=== PATIENT | female | born 1950 | race Caucasian/White ===

== ENCOUNTER 2020-09-15 18:57 | Inpatient (IN) | payer MEDICARE, BC ==
[~2020-09-15] VITALS: Ht 170.2 cm; Wt 68.0 kg
[2020-09-15] MEDS ORDERED: MORPHINE SULFATE 4 MG/1 ML DISP.SYRIN IV ONE (19:30)
[2020-09-15 19:39] LABS: MEAN CORPUSCULAR HEMOGLOBIN 32.1 uug (24.7-32.8); MEAN CORPUSCULAR VOLUME 97.4 fL (75.5-95.3); PLATELET COUNT (AUTO) 272 K/uL (179-408)
[2020-09-15 19:42] LABS: CREATININE 1.2 mg/dL (0.6-1.3); POTASSIUM 3.9 mmol/L (3.5-5.1)
[2020-09-15 19:48] LABS: BILIRUBIN,DIRECT 0.1 mg/dL (0.0-0.2); BILIRUBIN,TOTAL 0.3 mg/dL (0.2-1.0); TOTAL PROTEIN, SERUM 6.7 g/dL (6.4-8.2)
[2020-09-15] MEDS ORDERED: MORPHINE SULFATE 4 MG/1 ML DISP.SYRIN ONE (20:15)
[2020-09-15] MEDS ORDERED: ONDANSETRON HCL 4 MG TABLET ONE (21:05)
[2020-09-15] MEDS ORDERED: ONDANSETRON ODT 4 MG TAB.RAPDIS ONE (21:06)
[2020-09-15] MEDS ORDERED: ONDANSETRON ODT 4 MG TAB.RAPDIS SL ONE (21:30)
[2020-09-15] MEDS ORDERED: MORPHINE SULFATE 2 MG/1 ML DISP.SYRIN IV PRN (22:00)
[2020-09-15] MEDS ORDERED: ACETAMINOPHEN 325 MG TABLET PO PRN (22:00)
[2020-09-15] MEDS ORDERED: MAGNESIUM HYDROXIDE 30 ML LIQUID UDC PO PRN (22:00)
[2020-09-15] MEDS ORDERED: TDAP DIPH,PERTUSS,TET VAC/PF 0.5 ML DISP.SYRIN IM ONE (22:00)
[2020-09-15] MEDS ORDERED: Z GUARD REMEDY PASTE 57 GM TUBE TOP PRN (22:00)
[2020-09-15] MEDS ORDERED: BACITRACIN ZINC OINT 15 GM TUBE ONE (22:14)
[2020-09-15] MEDS ORDERED: NEOMY/BACITRA/POLYMYXIN B OINT UD PACKET TP ONE (22:15)
[2020-09-15] MEDS: HYDROCODONE/APAP 5-325MG TABLET PO PRN (23:10)
[2020-09-16] MEDS ORDERED: HYDROCODONE/APAP 5-325MG TABLET ONE ×2 (03:36→08:53)
[2020-09-16 06:12] LABS: HEMATOCRIT 39.8 % (31.2-41.9); MEAN CORPUSCULAR HEMOGLOBIN 33.1 uug (24.7-32.8); MEAN CORPUSCULAR VOLUME 97.1 fL (75.5-95.3); PLATELET COUNT (AUTO) 264 K/uL (179-408)
--- NOTE | 2020-09-16 06:26 | NUR ---
pt refused folley cath at this point.
[2020-09-16] MEDS ORDERED: RIVA20TA PO (06:34)
[2020-09-16] MEDS ORDERED: LISI10TA29 PO (06:34)
[2020-09-16] MEDS ORDERED: MONT10TA22 PO (06:34)
[2020-09-16] MEDS ORDERED: AZEL137S7 BNOSTRILS (06:34)
[2020-09-16] MEDS ORDERED: [UNRECOGNIZED DRUG - OTHER] (06:34)
[2020-09-16] MEDS ORDERED: brio NS (06:34)
[2020-09-16 06:37] LABS: *BILIRUBIN,URIN NEGATIVE (NEGATIVE); *BLOOD, URINE NEGATIVE (NEGATIVE); *CLARITY,URINE CLEAR (CLEAR); *COLOR,URINE YELLOW (YELLOW); *KETONES,URINE TRACE (NEGATIVE); *UROBILINOGEN,URINE 0.2 E.U./dl (NORMAL); LEUKOCYTE ESTERASE ,URINE NEGATIVE (NEGATIVE); NITRITE, URINE NEGATIVE (NEGATIVE); UGLUCOSE NEGATIVE (NEGATIVE)
[2020-09-16 06:38] LABS: CREATININE 0.9 mg/dL (0.6-1.3); PHOSPHOROUS 3.9 mg/dL (2.5-4.9); POTASSIUM 3.7 mmol/L (3.5-5.1)
[2020-09-16 06:40] LABS: THYROID STIMULATING HORMONE 3.578 mIU/mL (0.358-3.740)
[2020-09-16] MEDS: PANTOPRAZOLE SODIUM 40 MG TABLET.DR PO SCH (07:00)
[2020-09-16] MEDS ORDERED: PANTOPRAZOLE SODIUM 40 MG TABLET.DR PO ONE (07:23)
--- NOTE | 2020-09-16 08:41 | NUR ---
ELIZ Tapia, at bed side.
[2020-09-16] MEDS: HYDROCODONE/APAP 5-325MG TABLET PO PRN (08:48)
--- NOTE | 2020-09-16 09:00 | NUR ---
PT TOOK HER OWN AM MEDICATION INCLUDING XORELTO.
--- NOTE | 2020-09-16 09:17 | NUR ---
talked to DR. Hankins over the phone. Dr. hankins said that she already contacted Dr. Erazo for Ortho consult.
--- NOTE | 2020-09-16 11:00 | NUR ---
transfered pt to floor in stable condition. ptremained calm, right hip pain when movement. provided bed villalba x 3 for the pt. pt refused morphine, saying she feels weird with it, agreed with cox monetteverett.
[2020-09-16] MEDS: ONDANSETRON 4 MG/2 ML VIAL IV PRN (11:28)
[2020-09-16 12:00] VITALS: BP 119/71
[2020-09-16] MEDS: LISINOPRIL 10 MG TABLET PO SCH (15:00)
[2020-09-16 16:00] VITALS: BP 113/73
--- NOTE | 2020-09-16 18:56 | NUR ---
patient in bed awake and stable, no complains of any sob, pain or discomfort at this time. call light kept within reach. will report to oncoming shift.
[2020-09-16 21:01] VITALS: BP 116/71
[2020-09-17 04:40] VITALS: BP 107/56
[2020-09-17 06:30] LABS: HEMATOCRIT 40.5 % (31.2-41.9); MEAN CORPUSCULAR HEMOGLOBIN 31.9 uug (24.7-32.8); MEAN CORPUSCULAR VOLUME 97.4 fL (75.5-95.3); PLATELET COUNT (AUTO) 240 K/uL (179-408)
[2020-09-17 07:09] LABS: CREATININE 0.5 mg/dL (0.6-1.3); MAGNESIUM 1.9 mg/dL (1.8-2.4); POTASSIUM 3.6 mmol/L (3.5-5.1)
[2020-09-17] MEDS: PANTOPRAZOLE SODIUM 40 MG TABLET.DR PO SCH (08:00)
--- NOTE | 2020-09-17 08:00 | NUR ---
RECEIVED CHANGE OF SHIFT REPORT. PT CAME IN WITH C/O RIGHT PELVIC FX. PT IS A/OX4 ON ROOM AIR, NO SIGNS OF DISTRESS, REPORTS OF PAIN 4/10, MEDS GIVEN AT ORDERED. PT USING BEDPAN TO VOID. IV ACCESS ON THE RIGHT HAND 20G SALINE LOCKED. BED LOW AND LOCKED, CALL LIGHT WITHIN REACH, WILL CONTINUE TO MONITOR.
[2020-09-17] MEDS: LISINOPRIL 10 MG TABLET PO SCH (08:35)
[2020-09-17] MEDS: HYDROCODONE/APAP 5-325MG TABLET PO PRN ×2 (08:36→20:21)
[2020-09-17] MEDS: METOCLOPRAMIDE HCL 10 MG/2 ML VIAL IV PRN ×2 (08:51→20:18)
[2020-09-17] MEDS: MONTELUKAST SODIUM 10 MG TABLET PO SCH (10:23)
[2020-09-17 11:08] VITALS: BP 105/60
[2020-09-17] MEDS ORDERED: MECLIZINE HCL 25 MG TABLET PO PRN (12:30)
[2020-09-17 15:27] VITALS: BP 105/64
[2020-09-17] MEDS ORDERED: FLUT1BLS IH (16:03)
[2020-09-17] MEDS ORDERED: MONTELUKAST SODIUM 10 MG TABLET PO SCH (18:00)
[2020-09-17 20:10] VITALS: BP 110/65
[2020-09-17 20:27] LABS: *BILIRUBIN,URIN NEGATIVE (NEGATIVE); *CLARITY,URINE CLEAR (CLEAR); *COLOR,URINE YELLOW (YELLOW); *KETONES,URINE NEGATIVE (NEGATIVE); *UROBILINOGEN,URINE 0.2 E.U./dl (NORMAL); LEUKOCYTE ESTERASE ,URINE NEGATIVE (NEGATIVE); NITRITE, URINE NEGATIVE (NEGATIVE); UGLUCOSE NEGATIVE (NEGATIVE)
[2020-09-17 20:31] LABS: *BLOOD, URINE NEGATIVE (NEGATIVE)
[2020-09-18] MEDS: HYDROCODONE/APAP 5-325MG TABLET PO PRN ×2 (02:43→10:26)
[2020-09-18] MEDS: METOCLOPRAMIDE HCL 10 MG/2 ML VIAL IV PRN (02:44)
[2020-09-18 04:42] VITALS: BP 102/67
[2020-09-18] MEDS: PANTOPRAZOLE SODIUM 40 MG TABLET.DR PO SCH (06:30)
[2020-09-18 06:37] LABS: HEMATOCRIT 40.8 % (31.2-41.9); MEAN CORPUSCULAR HEMOGLOBIN 31.7 uug (24.7-32.8); MEAN CORPUSCULAR VOLUME 97.2 fL (75.5-95.3); PLATELET COUNT (AUTO) 230 K/uL (179-408)
[2020-09-18 06:53] LABS: CREATININE 0.5 mg/dL (0.6-1.3); PHOSPHOROUS 3.6 mg/dL (2.5-4.9); POTASSIUM 3.7 mmol/L (3.5-5.1)
--- NOTE | 2020-09-18 07:45 | NUR ---
Received patient awake, in bed, alert oriented x 4, no acute distress, on room air. Peripheral IV line on left forearm, intact and patent, no signs of infection. Gilliland catheter in place draining clear yellow urine. No complain of any pain or discomfort. Call light and frequently used items placed within patient's reach.
[2020-09-18] MEDS: MONTELUKAST SODIUM 10 MG TABLET PO SCH (09:07)
[2020-09-18] MEDS: LISINOPRIL 10 MG TABLET PO SCH (09:07)
[2020-09-18] MEDS ORDERED: METOCLOPRAMIDE HCL 10 MG TABLET PO PRN (10:15)
[2020-09-18] MEDS: ONDANSETRON 4 MG/2 ML VIAL IV PRN (11:18)
[2020-09-18 11:26] VITALS: BP 114/64
[2020-09-18] MEDS ORDERED: MIRALAX 17 GM POWD.PACK PO PRN (13:00)
[2020-09-18] MEDS ORDERED: DOCUSATE SODIUM 100 MG CAPSULE PO SCH (13:00)
[2020-09-18 15:25] VITALS: BP 106/73
--- NOTE | 2020-09-18 19:45 | NUR ---
Discharge instructions provided to the patient with verbalized understanding. Discharge papers signed by patient. All belongings well accounted for. Patient remains alert, oriented x 4, not in any form of distress. She denies any pain or discomfort at this time. Vital signs stable. Needs attended to promptly. Discharged patient to ARU. Report given to Danielle.
[2020-09-18] MEDS ORDERED: HYDR-4209 PO (21:12)
[2020-09-18] MEDS ORDERED: MAGN400O6 PO (21:12)
[2020-09-18] MEDS ORDERED: METO-295 PO (21:12)
[2020-09-18] MEDS ORDERED: MECL-159 PO (21:12)
[2020-09-18] MEDS ORDERED: ACET-2154 PO (21:12)
[2020-09-18] MEDS ORDERED: PANT40TA2 PO (21:12)
[2020-09-18] MEDS ORDERED: DOCU-141 PO (21:12)
[2020-09-18] MEDS ORDERED: POLY17PO4 PO (21:12)
[2020-09-18] MEDS ORDERED: RIVA10TA PO (23:09)
[2020-09-19] MEDS ORDERED: FLUTICASONE/VILANTEROL 1 EACH BLST.W.DEV IH SCH (09:00)
== END 2020-09-18 20:31 | DRG 536 ==
LOC: ER 19:00 → TRANSITION 09-16 06:44 → MEDSURG3 09-16 10:35
PROVIDERS: ADMIT Student in an Organized Health Care Education/Training Program; ATTEND Student in an Organized Health Care Education/Training Program
DX: S32.591A Other specified fracture of right pubis, initial encounter for closed fracture (principal); S32.511A Fracture of superior rim of right pubis, initial encounter for closed fracture; W17.89XA Other fall from one level to another, initial encounter; Y93.H2 Activity, gardening and landscaping; Y92.017 Garden or yard in single-family (private) house as the place of occurrence of the external cause; I48.91 Unspecified atrial fibrillation; Z79.01 Long term (current) use of anticoagulants; J45.909 Unspecified asthma, uncomplicated; K59.00 Constipation, unspecified; Z87.891 Personal history of nicotine dependence; R33.9 Retention of urine, unspecified; R90.82 White matter disease, unspecified; Z90.710 Acquired absence of both cervix and uterus; E83.51 Hypocalcemia; Z20.822 Contact with and (suspected) exposure to COVID-19
CPT/HCPCS: 36415; 70450; 72170; 72192; 73502; 83735; 84100; 84443; 85025; 90715; 93005; 97161; A4663; G0378; J2270; J2405; J2765; Q0162

== ENCOUNTER 2020-09-18 14:09 | Inpatient (IN) | payer MEDICARE, BC ==
[~2020-09-18] VITALS: Ht 170.2 cm; Wt 68.0 kg
[~2020-09-18 14:09] MED LIST: AZEL137S7 BNOSTRILS; FLUT1BLS IH; LISI10TA29 PO; MONT10TA22 PO; RIVA20TA PO; [UNRECOGNIZED DRUG - OTHER]
[2020-09-18 20:15] VITALS: BP 107/78
--- NOTE | 2020-09-18 21:00 | NUR ---
RECEIVED PATIENT AWAKE IN BED. PATIENT ADMITTED TO REHAB. MD'S NOTIFIED. PATIENT C/O PAIN IN PELVIC AREA. INSTRUCTED THAT WE ARE WAITING FOR ADMISSIONS ORDERS, PATIENT VERBALIZED UNDERSTANDING. NO RESP. DISTRESS NOTED. VS WNL. CALL LIGHT IN REACH. ALL NEEDS ATTENDED. WILL CONTINUE TO MONITOR AND ASSESS.
[2020-09-18] MEDS ORDERED: POLY17PO4 PO (21:12)
[2020-09-18] MEDS ORDERED: METO-295 PO (21:12)
[2020-09-18] MEDS ORDERED: HYDR-4209 PO (21:12)
[2020-09-18] MEDS ORDERED: PANT40TA2 PO (21:12)
[2020-09-18] MEDS ORDERED: ACET-2154 PO (21:12)
[2020-09-18] MEDS ORDERED: MAGN400O6 PO (21:12)
[2020-09-18] MEDS ORDERED: MECL-159 PO (21:12)
[2020-09-18] MEDS ORDERED: DOCU-141 PO (21:12)
[2020-09-18] MEDS ORDERED: Z GUARD REMEDY PASTE 57 GM TUBE TOP PRN (21:15)
[2020-09-18] MEDS ORDERED: MIRALAX 17 GM POWD.PACK PO PRN (21:30)
[2020-09-18] MEDS ORDERED: MAGNESIUM HYDROXIDE 30 ML LIQUID UDC PO PRN (21:30)
[2020-09-18] MEDS ORDERED: MECLIZINE HCL 25 MG TABLET PO PRN (21:30)
[2020-09-18] MEDS ORDERED: BISACODYL 10 MG SUPP.RECT RC ONE (21:45)
[2020-09-18] MEDS: METOCLOPRAMIDE HCL 10 MG TABLET PO PRN (22:01)
[2020-09-18] MEDS: HYDROCODONE/APAP 5-325MG TABLET PO PRN (22:02)
--- NOTE | 2020-09-18 22:15 | NUR ---
PATIENT GIVEN NORCO 1 TAB PO PRN FOR PAIN, REGLAN 10MG PO PRN FOR NAUSEA AND DULCOLAX SUP PRN FOR CONSTIPATION. ALL NEEDS ATTENDED. WILL CONTINUE TO MONITOR AND ASSESS.
[2020-09-18] MEDS ORDERED: RIVA10TA PO (23:09)
--- NOTE | 2020-09-18 23:15 | NUR ---
PATIENT ASKING FOR HER XARELTO. NOTIFIED YURIDIA JACKSON NP. NO NEW ORDERS GIVEN AT THIS TIME.
[2020-09-19 04:54] VITALS: BP 122/74
[2020-09-19] MEDS: PANTOPRAZOLE SODIUM 40 MG TABLET.DR PO SCH (06:49)
[2020-09-19 09:00] VITALS: BP 106/66
[2020-09-19] MEDS: MONTELUKAST SODIUM 10 MG TABLET PO SCH (10:15)
[2020-09-19] MEDS: DOCUSATE SODIUM 100 MG CAPSULE PO SCH ×2 (10:15→20:05)
[2020-09-19] MEDS: LISINOPRIL 10 MG TABLET PO SCH (10:15)
[2020-09-19] MEDS: FLUTICASONE/VILANTEROL 1 EACH BLST.W.DEV IH SCH (10:15)
[2020-09-19] MEDS: HYDROCODONE/APAP 5-325MG TABLET PO PRN ×2 (10:22→21:52)
[2020-09-19] MEDS: METOCLOPRAMIDE HCL 10 MG TABLET PO PRN ×2 (10:22→21:52)
[2020-09-19 15:43] VITALS: BP 109/66
--- NOTE | 2020-09-19 18:34 | NUR ---
The patient is alert/oriented x4. No distress noted. Requested PRN pain medication prior to therapy, given as ordered. Safety checks frequently done, and maintained. Call light within reach. Kept patient clean, dry, and comfortable. All needs attended. Will continue to monitor for any significant changes
[2020-09-19] MEDS ORDERED: RIVAROXABAN 10 MG TABLET PO SCH (19:00)
[2020-09-19 20:43] VITALS: BP 110/61
--- NOTE | 2020-09-20 02:00 | NUR ---
Received patient MANOLOo X4, resting in bed. VSS, no acute distress noted. C/o pain 8/ pain, administered [place] PRN. Pt complained of nausea administered Reglan PRN. Pt unable to have BM administered MOM. Due medication given and tolerated well. Needs attended to. Pt c/o of itching on back, noticed rash, washed and applied new gown, pt resting comfortable at this time. Safety measures maintained. Call light placed within reach. Frequent visual checks done. Will continue to monitor. Addendum: 09/21/20 at 0715 by WILLIAM MORALES RN RN wrong time
[2020-09-20 04:47] VITALS: BP 112/68
--- NOTE | 2020-09-20 05:23 | NUR ---
Pt slept throughout the night. Denies SOB or discomfort at this time. Able to make needs known. No distress noted. Safety and comfort provided. No other issues or concerns at this time, will endorse to day shift.
[2020-09-20] MEDS: PANTOPRAZOLE SODIUM 40 MG TABLET.DR PO SCH (06:23)
[2020-09-20 08:00] VITALS: BP 102/56
[2020-09-20] MEDS: METOCLOPRAMIDE HCL 10 MG TABLET PO PRN ×2 (08:20→17:43)
[2020-09-20] MEDS: DOCUSATE SODIUM 100 MG CAPSULE PO SCH ×2 (08:20→20:44)
[2020-09-20] MEDS: MONTELUKAST SODIUM 10 MG TABLET PO SCH (08:21)
[2020-09-20] MEDS: FLUTICASONE/VILANTEROL 1 EACH BLST.W.DEV IH SCH (08:21)
[2020-09-20] MEDS: HYDROCODONE/APAP 5-325MG TABLET PO PRN (08:23)
[2020-09-20] MEDS ORDERED: FAMOTIDINE 20 MG TABLET PO SCH (09:00)
[2020-09-20] MEDS: LISINOPRIL 10 MG TABLET PO SCH (10:50)
[2020-09-20 16:07] VITALS: BP 111/56
[2020-09-20] MEDS: RIVAROXABAN 10 MG TABLET PO SCH (17:43)
[2020-09-20 20:24] VITALS: BP 115/64
--- NOTE | 2020-09-20 23:00 | NUR ---
Received patient MANOLOo X4,. able to make needs known. VSS, no acute distress noted. On continuous O2 via NC at 2L, no respiratory distress noted. Due medication given and tolerated well. Needs attended to. Safety measures maintained. Call light placed within reach. Frequent visual checks done. Will continue to monitor. Addendum: 09/21/20 at 0711 by WILLIAM MORALES RN RN wrong pt
[2020-09-21] MEDS: HYDROCODONE/APAP 5-325MG TABLET PO PRN ×2 (00:45→08:24)
[2020-09-21] MEDS: METOCLOPRAMIDE HCL 10 MG TABLET PO PRN (01:04)
[2020-09-21 04:27] VITALS: BP 111/68
--- NOTE | 2020-09-21 07:15 | NUR ---
Received patient AXo X4, resting in bed. VSS, no acute distress noted. C/o pain 8/10 pain, administered [place] PRN. Pt complained of nausea administered Reglan PRN. Pt unable to have BM administered MOM. Due medication given and tolerated well. Needs attended to. Pt c/o of itching on back, noticed rash, washed and applied new gown, pt resting comfortable at this time. Safety measures maintained. Call light placed within reach. Frequent visual checks done. Will continue to monitor.
[2020-09-21 07:34] VITALS: BP 112/64
[2020-09-21] MEDS: DOCUSATE SODIUM 100 MG CAPSULE PO SCH ×2 (08:21→21:03)
[2020-09-21] MEDS: FAMOTIDINE 20 MG TABLET PO SCH (08:22)
[2020-09-21] MEDS: FLUTICASONE/VILANTEROL 1 EACH BLST.W.DEV IH SCH (08:22)
[2020-09-21] MEDS: LISINOPRIL 10 MG TABLET PO SCH (08:25)
[2020-09-21 15:58] VITALS: BP 117/61
[2020-09-21] MEDS: RIVAROXABAN 10 MG TABLET PO SCH (17:12)
[2020-09-21] MEDS: MONTELUKAST SODIUM 10 MG TABLET PO SCH (17:12)
--- NOTE | 2020-09-21 20:17 | NUR ---
INDIVIDUALIZED PLAN OF CARE
[2020-09-21 20:24] VITALS: BP 105/63
[2020-09-21] MEDS: ZOLPIDEM 5 MG TABLET PO PRN (22:29)
[2020-09-22 04:15] VITALS: BP 97/62
[2020-09-22 04:42] LABS: *BILIRUBIN,URIN NEGATIVE (NEGATIVE); *BLOOD, URINE 2+ (NEGATIVE); *CLARITY,URINE CLOUDY (CLEAR); *COLOR,URINE YELLOW (YELLOW); *KETONES,URINE NEGATIVE (NEGATIVE); *UROBILINOGEN,URINE 0.2 E.U./dl (NORMAL); LEUKOCYTE ESTERASE ,URINE 3+ (NEGATIVE); NITRITE, URINE POSITIVE (NEGATIVE); UGLUCOSE NEGATIVE (NEGATIVE)
[2020-09-22 04:43] LABS: BACTERIA,URINE MANY /HPF (NONE SEEN); RBC,URINE 20-50 /HPF (0-3); SQUAMOUS EPITHELIAL CELL,UR FEW /HPF (NONE SEEN); WBC,URINE TNTC /HPF (0-3)
--- NOTE | 2020-09-22 06:41 | NUR ---
Patient requested sleeping medication, received order for Ambien 5mg PO PRN HS. Administered, effective. Assisted pt to bedside commode multiple times throughout the night. Pt had 4 small BM. Pt c/o of burning upon urination, recieved order to collect specimen, sent to lab. Pt slept throughout the night. Denies SOB or discomfort at this time. Able to make needs known. No distress noted. Safety and comfort provided. will continue plan of care and endorse to day shift.
[2020-09-22 08:19] VITALS: BP 114/66
[2020-09-22] MEDS: FLUTICASONE/VILANTEROL 1 EACH BLST.W.DEV IH SCH (08:50)
[2020-09-22] MEDS: FAMOTIDINE 20 MG TABLET PO SCH (08:51)
[2020-09-22] MEDS: DOCUSATE SODIUM 100 MG CAPSULE PO SCH ×2 (08:55→20:52)
[2020-09-22] MEDS: LISINOPRIL 10 MG TABLET PO SCH (08:55)
[2020-09-22] MEDS: CULTURELLE CAPSULE PO SCH ×2 (10:44→20:52)
[2020-09-22] MEDS: CIPROFLOXACIN HCL 250 MG TABLET PO SCH ×2 (10:45→21:01)
[2020-09-22] MEDS: METOCLOPRAMIDE HCL 10 MG TABLET PO PRN (12:50)
[2020-09-22] MEDS: HYDROCODONE/APAP 5-325MG TABLET PO PRN (12:50)
[2020-09-22 15:33] VITALS: BP 100/68
[2020-09-22] MEDS: MONTELUKAST SODIUM 10 MG TABLET PO SCH (17:24)
[2020-09-22] MEDS: RIVAROXABAN 10 MG TABLET PO SCH (17:25)
[2020-09-22 20:45] VITALS: BP 120/64
[2020-09-22] MEDS: ZOLPIDEM 5 MG TABLET PO PRN (20:52)
--- NOTE | 2020-09-22 22:51 | NUR ---
AAOx4 OOB to bedside commode with assist. Voiding well. No BM noted this shift. VSS. Needs attended. Admitted for pelvic fracture but no surgical intervention noted. Denies any pain nor any discomfort. Will monitor patient. Fall precautions maintained. Siderails up for safety. No acute distress noted.
[2020-09-23 04:40] VITALS: BP 105/62
[2020-09-23 06:37] LABS: HEMATOCRIT 35.4 % (31.2-41.9); MEAN CORPUSCULAR HEMOGLOBIN 32.9 uug (24.7-32.8); PLATELET COUNT (AUTO) 300 K/uL (179-408)
[2020-09-23 06:54] LABS: CREATININE 0.5 mg/dL (0.6-1.3); POTASSIUM 3.1 mmol/L (3.5-5.1)
[2020-09-23 08:00] VITALS: BP 110/62
[2020-09-23] MEDS ORDERED: POTASSIUM CHLORIDE 20 MEQ TAB.PRT.SR PO ONE (08:15)
[2020-09-23] MEDS: DOCUSATE SODIUM 100 MG CAPSULE PO SCH ×2 (08:28→21:00)
[2020-09-23] MEDS: CULTURELLE CAPSULE PO SCH ×2 (08:28→21:33)
[2020-09-23] MEDS: FAMOTIDINE 20 MG TABLET PO SCH (08:28)
[2020-09-23] MEDS: LISINOPRIL 10 MG TABLET PO SCH (08:29)
[2020-09-23] MEDS: CIPROFLOXACIN HCL 250 MG TABLET PO SCH ×2 (08:29→21:33)
[2020-09-23] MEDS: FLUTICASONE/VILANTEROL 1 EACH BLST.W.DEV IH SCH (08:35)
[2020-09-23] MEDS ORDERED: HYDROCORTISONE 1% CREAM 30 GM TUBE TP PRN (10:30)
[2020-09-23 16:00] VITALS: BP 112/66
[2020-09-23] MEDS ORDERED: OXYCODONE/APAP 5-325 MG TABLET PO PRN (18:00)
[2020-09-23] MEDS: MONTELUKAST SODIUM 10 MG TABLET PO SCH (18:03)
[2020-09-23] MEDS: RIVAROXABAN 10 MG TABLET PO SCH (18:05)
[2020-09-23] MEDS: diphenhydrAMINE 25 MG CAP PO PRN (18:18)
--- NOTE | 2020-09-23 19:23 | NUR ---
INTERDISCIPLINARY TEAM CONFERENCE
[2020-09-23] MEDS: ZOLPIDEM 5 MG TABLET PO PRN (21:37)
[2020-09-23 22:30] VITALS: BP 103/59
[2020-09-24] MEDS: diphenhydrAMINE 25 MG CAP PO PRN ×2 (00:25→21:54)
[2020-09-24 04:34] VITALS: BP 105/84
[2020-09-24 06:59] LABS: CREATININE 0.5 mg/dL (0.6-1.3); POTASSIUM 3.7 mmol/L (3.5-5.1)
[2020-09-24 08:00] VITALS: BP 117/63
[2020-09-24] MEDS: FAMOTIDINE 20 MG TABLET PO SCH (08:21)
[2020-09-24] MEDS: CIPROFLOXACIN HCL 250 MG TABLET PO SCH (08:21)
[2020-09-24] MEDS: DOCUSATE SODIUM 100 MG CAPSULE PO SCH ×2 (08:21→20:18)
[2020-09-24] MEDS: LISINOPRIL 10 MG TABLET PO SCH (08:22)
[2020-09-24] MEDS: CULTURELLE CAPSULE PO SCH ×2 (08:23→20:03)
[2020-09-24] MEDS: FLUTICASONE/VILANTEROL 1 EACH BLST.W.DEV IH SCH (08:26)
--- NOTE | 2020-09-24 09:00 | NUR ---
NSG: Received patient lying in bed. AXo X4, resting in bed. VSS, no acute distress noted. no c/o pain or discomfort at this time. Due medication given and tolerated well. Needs attended to. Pt c/o of itching on back, noticed rash, pt resting comfortable at this time. Safety measures maintained. Call light placed within reach. Frequent visual checks done. Will continue to monitor.
--- NOTE | 2020-09-24 15:24 | NUR ---
NSG: RESTING IN BED COMFORTABLY. NO C/O PAIN OR DISCOMFORT. ASSISTED TO USE BATHROOM. KEPT CLEAN AND DRY.
[2020-09-24 16:14] VITALS: BP 123/68
[2020-09-24] MEDS: MONTELUKAST SODIUM 10 MG TABLET PO SCH (17:05)
[2020-09-24] MEDS: RIVAROXABAN 10 MG TABLET PO SCH (17:06)
[2020-09-24 20:30] VITALS: BP 132/52
[2020-09-24] MEDS ORDERED: SULFAMETH/TRIMETH 800/160 MG TABLET PO SCH (21:00)
[2020-09-24] MEDS ORDERED: CIPROFLOXACIN HCL 250 MG TABLET PO SCH (21:45)
--- NOTE | 2020-09-24 23:29 | NUR ---
Received patient awake on bed, watching TV with no respiratory distress noted. A/Ox4, able to make needs known. Denies pain and discomfort. Resident refused to take Bactrim DS and wants to go back on Cipro 250 mg. 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 Dr. Gamino informed and ordered to switch back to Cipro if patient also does not want Macrobid. Explained to patient that per Dr. Gamino, Macrobid is less sensitive and will work faster. Patient still opted for Cipro. All orders noted and carried out. All needs attended. Call light placed within reach. Frequent visual checks done. Will continue to monitor.
[2020-09-25] MEDS: diphenhydrAMINE 25 MG CAP PO PRN ×2 (04:01→12:55)
--- NOTE | 2020-09-25 06:44 | NUR ---
Patient slept intermittently throughout the night, easily arousable and able to make needs known. Denies pain and discomfort at this time. All needs attended. Call light placed within reach. Frequent visual checks one. Will endorse to next shift for continuity of care.
[2020-09-25 07:53] VITALS: BP 108/73
--- NOTE | 2020-09-25 08:00 | NUR ---
Patient received to care awake, alert x4. No distress, denies pain. Pt is cooperative with care, able to state her needs. safety precautions are in place. Pt awaits therapy.
[2020-09-25] MEDS ORDERED: CIPROFLOXACIN HCL 250 MG TABLET PO SCH (09:00)
[2020-09-25] MEDS: DOCUSATE SODIUM 100 MG CAPSULE PO SCH ×2 (09:00→20:32)
[2020-09-25] MEDS: CULTURELLE CAPSULE PO SCH ×2 (10:50→20:32)
[2020-09-25] MEDS: FAMOTIDINE 20 MG TABLET PO SCH (10:50)
[2020-09-25] MEDS: FLUTICASONE/VILANTEROL 1 EACH BLST.W.DEV IH SCH (10:51)
[2020-09-25] MEDS: LISINOPRIL 10 MG TABLET PO SCH (10:51)
[2020-09-25] MEDS: NITROFURANTOIN/NITROFURAN MAC 100 MG CAPSULE PO SCH ×2 (11:58→21:47)
[2020-09-25] MEDS: ACETAMINOPHEN 325 MG TABLET PO PRN (11:59)
--- NOTE | 2020-09-25 12:30 | NUR ---
Pt c/o headache. PRN Tylenol 650 mg PO was given at 1159. Pt states it was effective.
--- NOTE | 2020-09-25 13:30 | NUR ---
Pt c/o itchiness, hives. PRN Benedryl 25 mg PO was given at 1255. Pt states it was effective.
[2020-09-25 15:03] VITALS: BP 106/59
[2020-09-25] MEDS: MONTELUKAST SODIUM 10 MG TABLET PO SCH (18:33)
[2020-09-25] MEDS: RIVAROXABAN 10 MG TABLET PO SCH (18:36)
[2020-09-25 20:00] VITALS: BP 118/50
[2020-09-25] MEDS: ZOLPIDEM 5 MG TABLET PO PRN (21:53)
[2020-09-26] MEDS: diphenhydrAMINE 25 MG CAP PO PRN ×2 (00:11→20:06)
[2020-09-26 04:00] VITALS: BP 118/64
--- NOTE | 2020-09-26 06:02 | NUR ---
VS stable. No complaint of pain presented all night. Benadryl given for itchiness with relief. No further complaint presented. Slept good. All needs attended and met. Continue care as planned.
[2020-09-26 08:00] VITALS: BP 104/66
[2020-09-26] MEDS: FAMOTIDINE 20 MG TABLET PO SCH (08:15)
[2020-09-26] MEDS: NITROFURANTOIN/NITROFURAN MAC 100 MG CAPSULE PO SCH (08:15)
[2020-09-26] MEDS: CULTURELLE CAPSULE PO SCH ×2 (08:15→20:06)
[2020-09-26] MEDS: LISINOPRIL 10 MG TABLET PO SCH (08:16)
[2020-09-26] MEDS: FLUTICASONE/VILANTEROL 1 EACH BLST.W.DEV IH SCH (08:17)
[2020-09-26] MEDS: DOCUSATE SODIUM 100 MG CAPSULE PO SCH ×2 (08:18→20:19)
--- NOTE | 2020-09-26 09:29 | NUR ---
Received patient in bed, alert and oriented x 4, in room air saturating at 98%. VS WNL. Patient able to follow simple commands, pleasant and cooperative upon assessment. All due meds given per MD order. Placed call light within easy reach. All needs met in a timely manner.
[2020-09-26] MEDS: ACETAMINOPHEN 325 MG TABLET PO PRN (11:58)
--- NOTE | 2020-09-26 12:30 | NUR ---
Patient is complaining of itchiness on arms due to Macrobid. Patient is not complaining of sob. minimal redness noted on both forearms. Offered Benadryl but patient refused. Applied hydrocortisone. Notified Dr. Gamino.
[2020-09-26 15:34] VITALS: BP 112/72
[2020-09-26] MEDS: RIVAROXABAN 10 MG TABLET PO SCH (17:07)
[2020-09-26] MEDS: MONTELUKAST SODIUM 10 MG TABLET PO SCH (17:07)
[2020-09-26 20:38] VITALS: BP 118/63
--- NOTE | 2020-09-26 21:19 | NUR ---
Received pt awake on bed, no respiratory distress noted. A/O x4, able to make needs known. Complaint of itchiness/rashes on both arms, upper chest, and upper back. Per pt, it started 30 min after taking Macrobid in the morning. It goes away for a little back, then comes back. Diphenhydramine PRN given. Informed Dr. Gamino, with order to stop Macrobid and do urine culture. Went back to check pt after 30 min, stated that Diphenhydramine is starting to work. Informed pt that urine sample is needed, verbalized understanding. She is watching on her Ipad with no acute distress noted. All needs attended. Call light placed within reach. Frequent visual checks done. Will continue to monitor.
[2020-09-26] MEDS: ZOLPIDEM 5 MG TABLET PO PRN (23:13)
[2020-09-27] MEDS: diphenhydrAMINE 25 MG CAP PO PRN ×3 (03:14→20:07)
[2020-09-27 04:15] VITALS: BP 114/67
--- NOTE | 2020-09-27 06:43 | NUR ---
Patient given another diphenhydramine PRN d/t itchiness/rashes at 0314H, noted effective. Will endorse for continuity of care. Addendum: 09/27/20 at 0652 by SHAWNA ALEGRE RN Urine sample collected, urine culture still pending.
[2020-09-27] MEDS: FLUTICASONE/VILANTEROL 1 EACH BLST.W.DEV IH SCH (08:22)
[2020-09-27] MEDS: CULTURELLE CAPSULE PO SCH ×2 (08:23→20:07)
[2020-09-27] MEDS: FAMOTIDINE 20 MG TABLET PO SCH (08:23)
[2020-09-27] MEDS: LISINOPRIL 10 MG TABLET PO SCH (08:23)
[2020-09-27] MEDS: DOCUSATE SODIUM 100 MG CAPSULE PO SCH ×2 (08:25→20:09)
[2020-09-27 11:08] LABS: *BILIRUBIN,URIN NEGATIVE (NEGATIVE); *BLOOD, URINE NEGATIVE (NEGATIVE); *CLARITY,URINE CLEAR (CLEAR); *COLOR,URINE YELLOW (YELLOW); *KETONES,URINE NEGATIVE (NEGATIVE); *UROBILINOGEN,URINE 0.2 E.U./dl (NORMAL); LEUKOCYTE ESTERASE ,URINE NEGATIVE (NEGATIVE); NITRITE, URINE NEGATIVE (NEGATIVE); UGLUCOSE NEGATIVE (NEGATIVE)
[2020-09-27] MEDS: ACETAMINOPHEN 325 MG TABLET PO PRN (12:42)
--- NOTE | 2020-09-27 15:44 | NUR ---
Patient able to follow simple commands, pleasant and cooperative upon assessment. Patient in room air saturating at 98% All due meds given per MD order. Placed call light within easy reach. Went off the unit for therapy for an hour. Kept patient comfortable.
[2020-09-27] MEDS: RIVAROXABAN 10 MG TABLET PO SCH (18:58)
[2020-09-27] MEDS: MONTELUKAST SODIUM 10 MG TABLET PO SCH (18:58)
[2020-09-27 20:49] VITALS: BP 107/57
--- NOTE | 2020-09-27 21:37 | NUR ---
Received pt resting in bed. AAO x4. No acute distress noted. Denies pain/ discomfort. Due med given as ordered. Pt refused colace, risks and benefits explained, pt still refused. C/o itchiness on the left arm, PRN Benadryl given. Safety measures maintained. Call light and personal items within reach. Will continue to monitor.
[2020-09-27] MEDS: ZOLPIDEM 5 MG TABLET PO PRN (22:22)
[2020-09-28 04:44] VITALS: BP 107/59
[2020-09-28 08:00] VITALS: BP 94/55
[2020-09-28] MEDS: CULTURELLE CAPSULE PO SCH ×2 (08:35→20:33)
[2020-09-28] MEDS: FAMOTIDINE 20 MG TABLET PO SCH (08:35)
[2020-09-28] MEDS: LISINOPRIL 10 MG TABLET PO SCH (08:38)
[2020-09-28] MEDS: FLUTICASONE/VILANTEROL 1 EACH BLST.W.DEV IH SCH (08:38)
[2020-09-28] MEDS: diphenhydrAMINE 25 MG CAP PO PRN (08:39)
[2020-09-28] MEDS: DOCUSATE SODIUM 100 MG CAPSULE PO SCH ×2 (08:48→20:34)
[2020-09-28] MEDS: ACETAMINOPHEN 325 MG TABLET PO PRN (09:33)
--- NOTE | 2020-09-28 09:40 | NUR ---
Pt in bed and having her breakfast. AAO x4. No acute distress noted. C/o mild pain, Tylenol PRN pain med given as ordered. Other due meds given as ordered. Pt refused Colace, risks and benefits explained, pt still refused. Safety measures maintained. Call light and personal items within reach. Will continue to monitor.
[2020-09-28 16:00] VITALS: BP 112/57
[2020-09-28] MEDS: MONTELUKAST SODIUM 10 MG TABLET PO SCH (17:13)
[2020-09-28] MEDS: RIVAROXABAN 10 MG TABLET PO SCH (17:13)
[2020-09-28 20:00] VITALS: BP 103/56
[2020-09-28] MEDS: ZOLPIDEM 5 MG TABLET PO PRN (22:06)
[2020-09-29 04:00] VITALS: BP 101/61
[2020-09-29 08:00] VITALS: BP 102/68
[2020-09-29] MEDS: DOCUSATE SODIUM 100 MG CAPSULE PO SCH (09:00)
[2020-09-29] MEDS: FAMOTIDINE 20 MG TABLET PO SCH (09:02)
[2020-09-29] MEDS: FLUTICASONE/VILANTEROL 1 EACH BLST.W.DEV IH SCH (09:02)
[2020-09-29] MEDS: CULTURELLE CAPSULE PO SCH (09:02)
[2020-09-29 09:03] VITALS: BP 105/68
[2020-09-29] MEDS: LISINOPRIL 10 MG TABLET PO SCH (09:03)
== END 2020-09-29 14:30 | disposition home health service (06) | DRG 560 ==
PROVIDERS: ADMIT Physical Medicine & Rehabilitation Pain Medicine; ATTEND Physical Medicine & Rehabilitation Pain Medicine
DX: S32.82XD Multiple fractures of pelvis without disruption of pelvic ring, subsequent encounter for fracture with routine healing (principal); D68.59 Other primary thrombophilia; N39.0 Urinary tract infection, site not specified; W17.89XD Other fall from one level to another, subsequent encounter; J45.909 Unspecified asthma, uncomplicated; I48.91 Unspecified atrial fibrillation; Z87.891 Personal history of nicotine dependence; R90.82 White matter disease, unspecified; E87.6 Hypokalemia; R21 Rash and other nonspecific skin eruption
CPT/HCPCS: 36415; 72170; 85025; 87077; 87086; 97161; J8597; Q0163